=== PATIENT | male | born 1965 ===

== ENCOUNTER 2017-03-08 07:49 | Outpatient (CLI) | payer OTHER ==
[~2017-03-08] VITALS: Ht 177.8 cm; Wt 86.2 kg
== END 2017-03-08 08:10 | disposition home or self-care (01) ==
LOC: OFIC 805 07:49
DX: R42 Dizziness and giddiness (principal); R07.0 Pain in throat

== ENCOUNTER 2017-03-16 08:56 | Outpatient (CLI) | payer OTHER ==
[~2017-03-16] VITALS: Ht 152.4 cm; Wt 86.2 kg
== END 2017-03-16 09:15 | disposition home or self-care (01) ==
LOC: OFIC 805 08:56
DX: R07.0 Pain in throat (principal); M25.48 Effusion, other site; J02.8 Acute pharyngitis due to other specified organisms

== ENCOUNTER 2018-10-27 10:13 | Outpatient (CLI) | payer OTHER ==
[~2018-10-27] VITALS: Ht 152.4 cm; Wt 86.2 kg
== END 2018-10-27 10:42 | disposition home or self-care (01) ==
LOC: OFIC 805 10:13
DX: H74.8X3 Other specified disorders of middle ear and mastoid, bilateral (principal); H69.81 Other specified disorders of Eustachian tube, right ear; H61.23 Impacted cerumen, bilateral; H90.11 Conductive hearing loss, unilateral, right ear, with unrestricted hearing on the contralateral side; J31.0 Chronic rhinitis

== ENCOUNTER 2018-11-24 09:53 | Outpatient (CLI) | payer OTHER ==
[~2018-11-24] VITALS: Ht 152.4 cm; Wt 86.2 kg
== END 2018-11-24 11:23 | disposition home or self-care (01) ==
LOC: OFIC 805 09:53
DX: G47.33 Obstructive sleep apnea (adult) (pediatric) (principal); R06.83 Snoring; J31.0 Chronic rhinitis; H90.11 Conductive hearing loss, unilateral, right ear, with unrestricted hearing on the contralateral side; H69.81 Other specified disorders of Eustachian tube, right ear; J02.8 Acute pharyngitis due to other specified organisms

== ENCOUNTER 2019-01-19 07:31 | Outpatient (CLI) | payer OTHER ==
[~2019-01-19] VITALS: Ht 152.4 cm; Wt 86.2 kg
== END 2019-01-19 08:32 | disposition home or self-care (01) ==
LOC: OFIC 805 07:31
DX: B36.9 Superficial mycosis, unspecified (principal); H61.23 Impacted cerumen, bilateral; J31.0 Chronic rhinitis; H92.01 Otalgia, right ear; H90.11 Conductive hearing loss, unilateral, right ear, with unrestricted hearing on the contralateral side

== ENCOUNTER 2022-07-09 08:40 | Day surgery (SDC) | payer OTHER ==
[~2022-07-09] VITALS: Ht 175.3 cm; Wt 90.7 kg
[~2022-07-09 08:40] MED LIST: ACTOS15 MG PO; CRESTOR20 MG PO; DEXILAN PO; DILTIAZEM ER120 MG PO; HUMALOG JU100 UNIT/1; HYZAAR 100-12.1 EACH PO; LANTU; LOVAZA1 GM PO; PEPCID AC20 MG PO; SYNJARDY 12.5-1 EACH PO; TOPROL XL25 M1 PO
[2022-07-09] MEDS ORDERED: CEPHALEXIN500 M1 PO (17:24)
[2022-07-09] MEDS ORDERED: CILOXAN5 ML OTIC (17:24)
== END 2022-07-09 19:30 | disposition home or self-care (01) ==
LOC: CIR.AMB 08:40
PROVIDERS: ATTEND Otolaryngology Otology & Neurotology
DX: H72.01 Central perforation of tympanic membrane, right ear (principal); H90.11 Conductive hearing loss, unilateral, right ear, with unrestricted hearing on the contralateral side; Z20.822 Contact with and (suspected) exposure to COVID-19